=== PATIENT | female | born 1955 | race Caucasian/White ===

== ENCOUNTER → 2020-09-10 | Outpatient (CLI) | payer MEDICARE, OTHER ==
[~2020-09-10] MED LIST: ASPIR 8181 MG PO; CYMBALTA 20 MG20 MG PO; DYMISTA NASAL S23 GM; ELIQUIS5 MG PO; EYE ITCH RELIEF5 ML OP; FLONASE 0.05% N16 GM; FLOVENT DISKU250 MCG INH; KENALOG IN ORABA5 GM TOP; KLOR-CON 1010 MEQ PO; LASIX 40 MG TAB40 MG PO; MEGA BIOTIN10000 MCG PO; MUCINEX600 MG PO; NITROSTAT0.3 MG SL; PROTONIX40 MG PO; PROVENTIL HFA6.7 GM INH; SINGULAIR10 MG PO; SYNTHROID 100100 MCG PO; TOBREX3.5 GM OU; TOPROL XL 50 MG50 MG PO; TUDORZA PRESS400 MCG INH; ZOCOR20 MG PO; [UNRECOGNIZED DRUG - OTHER] INH
[2020-09-10 10:07] LABS: BUN/CREATININE RATIO 14 (0-10)
[2020-09-13 11:10] LABS: CHOLESTEROL, TOTAL 194 mg/dL (100-199); HDL SIZE 8.9 nm (>=9.2); HDL-C 47 mg/dL (>39); HDL-P (TOTAL) 29.2 umol/L (>=30.5); LARGE VLDL-P 5.3 nmol/L (<=2.7); LDL SIZE 21.3 nm (>20.5); LDL SIZE 21.3 nm (>=20.8); LDL-C 119 mg/dL (0-99); LDL-P 1327 nmol/L (<1000); LP-IR SCORE 50 (<=45); SMALL LDL-P 454 nmol/L (<=527); TRIGLYCERIDES 157 mg/dL (0-149); VLDL SIZE 45.9 nm (<=46.6)
== END ==
LOC: LAB 08:58
PROVIDERS: Emergency Medicine
DX: M79.662 Pain in left lower leg (principal); I73.89 Other specified peripheral vascular diseases; I10 Essential (primary) hypertension; E78.2 Mixed hyperlipidemia; R53.83 Other fatigue; Z88.6 Allergy status to analgesic agent
CPT/HCPCS: 36415; 73590; 80053

== ENCOUNTER → 2020-11-23 | Outpatient (CLI) | payer MEDICARE, OTHER | LOC: CT 14:07 | DX: K56.699 Other intestinal obstruction unspecified as to partial versus complete obstruction (principal) | CPT/HCPCS: 36415; 82565; 84520; Q9967 ==

== ENCOUNTER 2022-03-28 00:51 | Emergency (ER) | payer MEDICARE, OTHER ==
[2022-03-28 01:16] LABS: HEMOGLOBIN 9.8 gm/dl (12.3-15.3); RED BLOOD COUNT 4.52 M/UL (4.00-5.10); WHITE BLOOD COUNT 14.8 K/UL (4.5-11.0)
[2022-03-28] MEDS ORDERED: ZOFRAN 4 MG TAB4 MG PO (06:01)
== END 2022-03-28 06:15 | disposition home or self-care (01) ==
LOC: ER1 00:51
PROVIDERS: Student in an Organized Health Care Education/Training Program
DX: R10.32 Left lower quadrant pain (principal); R11.0 Nausea; J44.9 Chronic obstructive pulmonary disease, unspecified; F17.210 Nicotine dependence, cigarettes, uncomplicated; Z95.1 Presence of aortocoronary bypass graft; Z88.5 Allergy status to narcotic agent; Z91.040 Latex allergy status
CPT/HCPCS: 80053; 81001; 82550; 82553; 83690; 84484; 85025; 93005; 99284; Q9967